=== PATIENT | female | born 1955 | race Caucasian/White ===

== ENCOUNTER 2018-03-18 11:27 | Outpatient (CLI) | payer MEDICARE, MEDICAID ==
--- NOTE | 2018-03-18 12:47 | RAD ---
TWO VIEWS OF THE CHEST: Comparison: 02-28-09 History: Cough for two weeks. FINDINGS: Two views of the chest shows a cardiomediastinal silhouette which is upper limits of normal in size. There is no evidence of consolidation, mass, or pleural effusions. Degenerative changes are seen in t he spine. The patient is status post left shoulder arthroplasty. IMPRESSION: No evidence of acute cardiopulmonary disease. POS: [facility]
== END 2018-03-18 11:28 | disposition home or self-care (01) ==
LOC: SCSRAD 11:27
PROVIDERS: ATTEND Family Medicine
DX: J20.9 Acute bronchitis, unspecified (principal)
CPT/HCPCS: 71046

== ENCOUNTER 2018-09-02 08:43 | Outpatient (CLI) | payer MEDICARE, MEDICAID ==
[2018-09-02 10:38] LABS: Hemoglobin 11.9 g/dL (12.0-16.0); Mean Corpuscular HGB CONC 33.7 g/dL (32.0-36.0); Mean Corpuscular Hemoglobin 29.7 pg (27.0-31.0); Mean Platelet Volume 7.2 fL (7.4-10.4); Platelet Count 334 thou/uL (130-400); Red Blood Cell (RBC) Count 4.01 mill/uL (4.20-5.40); White Blood Cell (WBC) Count 11.1 thou/uL (4.8-10.8)
[2018-09-02 10:47] LABS: PTT 29.6 SEC (22.9-36.1); Prothrombin Time 13.5 SEC (12.0-14.7)
[2018-09-02 10:57] LABS: Anion Gap 14 mmol/L (10-20); BUN (Urea Nitrogen) 10 mg/dL (9.8-20.1); Calc. Creatinine Clearance 0 mL/min (70-130); Calcium 9.3 mg/dL (7.8-10.44); Carbon Dioxide 25 mmol/L (23-31); Chloride 104 mmol/L (98-107); Estimated GFR-MDRD 62; Glucose 96 mg/dL (80-115); Potassium 4.6 mmol/L (3.5-5.1); Sodium 138 mmol/L (136-145)
== END 2018-09-02 08:44 | disposition home or self-care (01) ==
LOC: LABBT 08:43
PROVIDERS: ATTEND Surgery
DX: Z01.818 Encounter for other preprocedural examination (principal); M54.16 Radiculopathy, lumbar region; M48.061 Spinal stenosis, lumbar region without neurogenic claudication; M71.30 Other bursal cyst, unspecified site
CPT/HCPCS: 80048; 85027; 85610; 85730; 93005; 93010

== ENCOUNTER 2018-09-04 12:00 | Inpatient (IN) | payer MEDICARE, MEDICAID ==
[2018-09-02 09:11] VITALS: BMI 33.3
[2018-09-09] MEDS ORDERED: CEFAZOLIN 2 GM/50 ML BAG ONE (09:02)
[2018-09-09] MEDS ORDERED: Sodium Chloride 0.9% 10 ML ONE (09:30)
[2018-09-09] MEDS ORDERED: Bacitracin Zinc Ointment 30 gm TUBE ONE (09:30)
[2018-09-09] MEDS ORDERED: Thrombin 5000 UNITS/5 ML VIAL ONE (09:30)
[2018-09-09] MEDS ORDERED: Fentanyl 100 MCG/2 ML VIAL ONE ×2 (09:56→12:00)
[2018-09-09] MEDS ORDERED: Morphine Sulfate 2 MG/ML SYRINGE SLOW IVP PRN (11:06)
[2018-09-09] MEDS ORDERED: Promethazine HCl 25 MG/ML VIAL IM PRN (11:06)
[2018-09-09] MEDS ORDERED: HYDROmorphone 2 MG/ML VIAL SLOW IVP PRN (11:06)
[2018-09-09] MEDS ORDERED: Promethazine HCl 25 MG/ML VIAL SLOW IVP PRN (11:06)
[2018-09-09] MEDS ORDERED: PACU-Morphine 4MG/ML VIAL SLOW IVP PRN (11:06)
[2018-09-09] MEDS ORDERED: Meperidine HCl/PF 25 MG/ML VIAL SLOW IVP PRN (11:06)
[2018-09-09] MEDS ORDERED: Ondansetron HCl/PF 4 MG/2 ML Vial IVP PRN (11:06)
[2018-09-09] MEDS ORDERED: Milk Of Magnesia 30 ML UDCUP PO PRN (11:46)
[2018-09-09] MEDS ORDERED: Acetaminophen 325 MG TAB PO PRN (11:46)
[2018-09-09] MEDS ORDERED: Bisacodyl 10 MG SUPP PR PRN (11:46)
[2018-09-09] MEDS ORDERED: Fleet Enema 133 ML BOT PR PRN (11:46)
[2018-09-09] MEDS ORDERED: Mag-Al 1200 mg/1200 mg/30 ML UDCUP PO PRN (11:46)
[2018-09-09] MEDS ORDERED: traMADol HCl 50 MG TAB PO PRN (11:46)
[2018-09-09] MEDS ORDERED: PROVENTIL INHALER 6.7 G (200 INHALATIONS) INH SCH (12:00)
[2018-09-09] MEDS ORDERED: HYDROmorphone 2 MG/ML VIAL ONE (12:00)
--- NOTE | 2018-09-09 13:37 | OP ---
DATE OF PROCEDURE: 09/09/2018 OR: OR #11 WOUND TYPE: Type 1 wound. SURGEON: Zach Hawkins M.D. SLITTER CREASER SLOTTER HELPER: Rafael Kirby PA-C PREPROCEDURE DIAGNOSES: Low back with bilateral leg pain and L3-L4 synovial cyst. POSTPROCEDURE DIAGNOSES: Low back with bilateral leg pain and L3-L4 synovial cyst. PROCEDURE: L3-L4 laminectomy for synovial cyst resection. DESCRIPTION OF PROCEDURE: After informed consent was obtained from the patient, the patient was brou ght to OR 11. Proper patient pause and identification was carried out. She was placed under excelle nt endotracheal anesthesia and positioned prone on the OR table. All appropriate points were padded. We identified the midline dorsal spine and a prior lower lumbar wound and a portion of this was inc orporated into the new wound. This area sterilely cleansed, prepared, and draped. Proper patient pa use identification was carried out. The wound was then opened with a combination of sharp, monopolar and blunt dissection. The L3 spinous process and lamina was exposed and the L4 region which had pr ior surgery was exposed. Localization film confirmed our area of interest. We then performed an L3- L4 laminectomy, partial facetectomy, and synovial cyst resection. It was eccentric to the left, but did feel the canal to the midline. This was resected in its entirety. There was excellent decompres branden of the common dural tube, bilateral L3 and bilateral L4 nerve root well. The wound was copiousl y irrigated. Hemostasis was maximized throughout. The wound was then closed in anatomic layers foll owing the sprinkling of vancomycin powder. The patient then emerged from anesthesia.
[2018-09-09] MEDS ORDERED: Morphine 4 MG/ML VIAL ONE (14:12)
[2018-09-09] MEDS: Sodium Chloride 0.9% 1,000 ML IV SCH (14:55)
[2018-09-09] MEDS: HYDROcodone/Acetaminophen 7.5/325 mg Tablet PO PRN ×2 (16:28→20:45)
[2018-09-09] MEDS: Pregabalin 75 MG CAP PO SCH ×2 (16:29→20:46)
[2018-09-09] MEDS: CEFAZOLIN 2 GM/50 ML BAG IVPB SCH (16:30)
[2018-09-09] MEDS ORDERED: Lidocaine 1% PF 5 ML VIAL ONE (17:29)
[2018-09-09] MEDS ORDERED: PHENYLEPHRINE-NS 100 MCG/ML 10 ML SYRINGE ONE (17:29)
[2018-09-09] MEDS ORDERED: ePHEDrine/0.9% NaCl/PF SYRINGE 50 mg/10 ml ONE (17:29)
[2018-09-09] MEDS ORDERED: Dexamethasone 20 MG/5 ML VIAL ONE (17:29)
[2018-09-09] MEDS ORDERED: Metoclopramide HCl 10 MG/2 ML VIAL ONE (17:29)
[2018-09-09] MEDS ORDERED: Ondansetron PF 4 MG/2 ML Vial ONE (17:29)
[2018-09-09] MEDS ORDERED: PROPOFOL 200 MG/20 ML VIAL ONE (17:29)
[2018-09-09] MEDS ORDERED: Glycopyrrolate 0.2 MG/ML 5 ML SYRINGE ONE (17:29)
[2018-09-09] MEDS: busPIRone HCl 10 MG TAB PO SCH (20:45)
[2018-09-09] MEDS: Ziprasidone 20 MG CAP PO SCH (20:46)
[2018-09-09] MEDS: Carvedilol 6.25 MG TAB PO SCH (20:46)
[2018-09-09] MEDS ORDERED: Amitriptyline HCl 100 MG TAB PO SCH (21:00)
[2018-09-09] MEDS: Bromocriptine 2.5 MG TAB PO SCH (21:16)
[2018-09-09] MEDS: Acetaminophen/Codeine 30-300mg Tablet PO PRN (22:09)
[2018-09-10] MEDS: CEFAZOLIN 2 GM/50 ML BAG IVPB SCH (00:03)
[2018-09-10] MEDS: Sodium Chloride 0.9% 1,000 ML IV SCH ×2 (01:48→07:22)
[2018-09-10] MEDS: Acetaminophen/Codeine 30-300mg Tablet PO PRN (04:22)
[2018-09-10] MEDS: Morphine 2 MG/ML SYRINGE SLOW IVP PRN ×4 (05:14→15:26)
[2018-09-10] MEDS: HYDROcodone/Acetaminophen 7.5/325 mg Tablet PO PRN ×3 (05:14→12:49)
[2018-09-10] MEDS ORDERED: Levothyroxine Sodium 112 MCG TAB PO SCH (06:00)
[2018-09-10 08:06] VITALS: TEMP 98.5
[2018-09-10] MEDS: busPIRone HCl 10 MG TAB PO SCH (08:10)
[2018-09-10] MEDS: Pregabalin 75 MG CAP PO SCH ×2 (08:10→15:20)
[2018-09-10] MEDS: Ziprasidone 20 MG CAP PO SCH (08:11)
[2018-09-10] MEDS: Carvedilol 6.25 MG TAB PO SCH (08:12)
[2018-09-10] MEDS ORDERED: Escitalopram Oxalate 20 mg Tablet PO SCH (09:00)
[2018-09-10] MEDS ORDERED: Losartan 25 MG TAB PO SCH (09:00)
[2018-09-10] MEDS ORDERED: Famotidine 20 MG TAB PO SCH (09:00)
--- NOTE | 2018-09-10 09:31 | PRG ---
DATE OF SERVICE: 09/10/2018 Ms. Shaffer is postop day 1 from lumbar synovial cyst resection. She has low back and left hip and lat eral thigh pain. She otherwise has met criteria for dismissal. Neurologically, she is doing well. We went over intra and postoperative issues.
[2018-09-10] MEDS: Bromocriptine 2.5 MG TAB PO SCH (09:46)
[2018-09-10 11:04] VITALS: BP 122/74
== END 2018-09-10 15:41 | disposition home or self-care (01) | DRG 517 ==
LOC: SURG A 09-09 07:33 → SURG B 09-09 13:41
PROVIDERS: ADMIT Surgery; ATTEND Surgery
PROC: 01NB0ZZ Release Lumbar Nerve, Open Approach (ICD-10-PCS; principal; 2018-09-09)
DX: M48.061 Spinal stenosis, lumbar region without neurogenic claudication (principal); M54.16 Radiculopathy, lumbar region; M71.38 Other bursal cyst, other site
CPT/HCPCS: 76001; J0131; J1100; J1170; J2001; J2270; J2405; J2704; J2765; J3010; J3370; J3490

== ENCOUNTER 2021-09-07 19:14 | Emergency (ER) | payer MEDICARE, MEDICAID | END 2021-09-07 20:50 | disposition home or self-care (01) | LOC: ERS 19:14 | DX: R19.7 Diarrhea, unspecified (principal) | CPT/HCPCS: 99281 ==

== ENCOUNTER 2021-10-22 19:06 | Inpatient (IN) | payer MEDICARE, MEDICAID ==
[~2021-10-22 19:06] MED LIST: Iopamidol-370 76% 500 ML 1 ML ONE
[2021-10-22 19:49] LABS: #Basophils 0.1 thou/uL (0.0-0.2); #Eosinphils 0.1 thou/uL (0.0-0.7); #Lymphocytes 3.6 thou/uL (1.20-3.40); #Monocytes 1.2 thou/uL (0.11-0.59); #Neutrophils 9.9 thou/uL (1.40-6.50); %Basophils 0.6 % (0.0-1.0); %Eosinophils 0.4 % (0.0-10.0); %Lymphocytes 24.5 % (21.0-51.0); %Monocytes 7.9 % (0.0-10.0); %Neutrophils 66.6 % (42.0-75.0); Hemoglobin 11.8 g/dL (12.0-16.0); Mean Corpuscular HGB CONC 34.7 g/dL (32.0-36.0); Mean Corpuscular Hemoglobin 30.1 pg (27.0-31.0); Mean Corpuscular Volume 86.9 fL (78.0-98.0); Mean Platelet Volume 7.3 fL (7.4-10.4); Platelet Count 364 thou/uL (130-400); Red Blood Cell (RBC) Count 3.92 mill/uL (4.20-5.40); White Blood Cell (WBC) Count 14.9 thou/uL (4.8-10.8)
[2021-10-22 19:58] LABS: INR-International Normal Ratio 1.1; PTT 37.2 sec (22.9-36.1); Prothrombin Time 14.1 sec (12.0-14.7)
[2021-10-22 20:15] LABS: ALT (SGPT) 32 U/L (8-55); AST (SGOT) 42 U/L (5-34); Albumin 4.1 g/dL (3.4-4.8); Alkaline Phosphatase 91 U/L (40-110); Anion Gap 17 mmol/L (10-20); BUN (Urea Nitrogen) 11 mg/dL (9.8-20.1); Bilirubin, Total 0.7 mg/dL (0.2-1.2); Calc. Creatinine Clearance 0 mL/min (70-130); Calcium 9.9 mg/dL (7.8-10.44); Carbon Dioxide 20 mmol/L (23-31); Chloride 107 mmol/L (98-107); Globulin 3.8 g/dL (2.4-3.5); Glucose 122 mg/dL (80-115); Lipase 76 U/L (8-78); Magnesium 1.3 mg/dL (1.6-2.6); Potassium 4.3 mmol/L (3.5-5.1); Protein, Total 7.9 g/dL (5.8-8.1); Sodium 140 mmol/L (136-145)
[2021-10-22] MEDS ORDERED: Nitroglycerin 2% Ointment 1 INCH/1 GM Packet ONE (21:14)
[2021-10-22] MEDS ORDERED: Magnesium 2 GM/50 ML BAG (IN WATER) ONE (21:22)
[2021-10-22] MEDS ORDERED: Nitroglycerin 0.4 MG TAB (25 Tab Bottle) SL PRN (22:32)
[2021-10-22] MEDS ORDERED: Ondansetron PF 4 MG/2 ML Vial IVP PRN (22:32)
[2021-10-22] MEDS ORDERED: HYDROcodone/Acetaminophen 5/325 mg Tablet PO PRN (22:32)
[2021-10-22] MEDS ORDERED: Acetaminophen 325 MG TAB PO PRN (22:32)
[2021-10-22] MEDS ORDERED: Carvedilol 6.25 MG TAB PO SCH (23:00)
[2021-10-22] MEDS ORDERED: Furosemide 40 MG/4 ML VIAL SLOW IVP SCH (23:00)
[2021-10-22 23:25] LABS: Troponin I Less than 0.010 ng/mL (< 0.028)
[2021-10-23] MEDS: cefTRIAXone\\ROCEPHIN 1 GM in Sodium Chloride 0.9% 100 ML IVPB SCH ×2 (01:24→23:35)
[2021-10-23 01:25] VITALS: BMI 30.2
[2021-10-23 02:05] LABS: Troponin I Less than 0.010 ng/mL (< 0.028)
[2021-10-23] MEDS: Magnesium 2 GM/50 ML 2 GM in Premix Bag 1 BAG IVPB SCH ×2 (02:23→11:45)
[2021-10-23 05:39] LABS: Hemoglobin 10.8 g/dL (12.0-16.0); Mean Corpuscular HGB CONC 34.7 g/dL (32.0-36.0); Mean Corpuscular Hemoglobin 30.2 pg (27.0-31.0); Mean Platelet Volume 7.3 fL (7.4-10.4); Platelet Count 338 thou/uL (130-400); RBC Distribution Width 11.9 % (11.5-14.5); Red Blood Cell (RBC) Count 3.58 mill/uL (4.20-5.40); White Blood Cell (WBC) Count 12.5 thou/uL (4.8-10.8)
[2021-10-23 05:40] LABS: Lymphocytes 38 % (21-51); MDiff Complete? YES; Monocytes 8 % (0-10); Neutrophil 54 % (42-75); Platelet Morphology Comment Appears Adequate; RBC Morphology Normal
[2021-10-23] MEDS: Levothyroxine Sodium 100 MCG TAB PO SCH (05:51)
[2021-10-23 05:55] LABS: ALT (SGPT) 30 U/L (8-55); AST (SGOT) 39 U/L (5-34); Albumin 3.8 g/dL (3.4-4.8); Alkaline Phosphatase 84 U/L (40-110); Anion Gap 15 mmol/L (10-20); BUN (Urea Nitrogen) 11 mg/dL (9.8-20.1); Bilirubin, Total 0.4 mg/dL (0.2-1.2); Calc. Creatinine Clearance 86 mL/min (70-130); Calcium 9.4 mg/dL (7.8-10.44); Carbon Dioxide 23 mmol/L (23-31); Chloride 102 mmol/L (98-107); Globulin 3.6 g/dL (2.4-3.5); Glucose 112 mg/dL (80-115); Protein, Total 7.4 g/dL (5.8-8.1); Sodium 137 mmol/L (136-145)
[2021-10-23] MEDS: Ziprasidone 60 MG CAP PO SCH (08:32)
[2021-10-23] MEDS: Carvedilol 6.25 MG TAB PO SCH ×2 (08:32→16:01)
[2021-10-23] MEDS: Potassium Chloride 20 MEQ TAB PO SCH ×4 (08:32→20:45)
[2021-10-23] MEDS: Bromocriptine 2.5 MG TAB PO SCH ×2 (08:33→20:46)
[2021-10-23] MEDS: Aspirin Chewable 81 MG TAB PO SCH (08:33)
[2021-10-23] MEDS: LACTINEX 1 TAB PO SCH (08:33)
[2021-10-23] MEDS: busPIRone HCl 5 MG TAB PO SCH ×2 (08:34→20:46)
[2021-10-23] MEDS: Famotidine 20 MG TAB PO SCH ×2 (08:34→20:46)
[2021-10-23] MEDS: Escitalopram Oxalate 20 mg Tablet PO SCH (08:34)
[2021-10-23] MEDS: Enoxaparin Sodium 40 MG/0.4 ML SYRINGE SC SCH (08:34)
[2021-10-23] MEDS: Furosemide 40 MG/4 ML VIAL SLOW IVP SCH (08:35)
[2021-10-23] MEDS: Losartan 25 MG TAB PO SCH (08:35)
[2021-10-23] MEDS: Pregabalin 75 MG CAP PO SCH ×3 (08:35→20:45)
[2021-10-23] MEDS: metroNIDAZOLE 500 MG TAB PO SCH ×3 (08:35→20:46)
[2021-10-23] MEDS ORDERED: BROMOCRIPTINE MESYLATE 5 MG PO SCH (09:00)
[2021-10-23] MEDS ORDERED: Non-Formulary Item 1 EACH (Buspirone Hcl [Buspirone Hcl] 15 MG Tablet) PO SCH (09:00)
[2021-10-23] MEDS ORDERED: Amitriptyline HCl 10 MG TAB PO SCH (21:00)
[2021-10-24] MEDS: Potassium Chloride 20 MEQ TAB PO SCH ×4 (01:33→12:04)
[2021-10-24 04:56] LABS: Magnesium 2.2 mg/dL (1.6-2.6)
[2021-10-24] MEDS: Levothyroxine Sodium 100 MCG TAB PO SCH (05:41)
[2021-10-24 08:11] LABS: Anion Gap 12 mmol/L (10-20); BUN (Urea Nitrogen) 10 mg/dL (9.8-20.1); Calc. Creatinine Clearance 96 mL/min (70-130); Calcium 9.5 mg/dL (7.8-10.44); Carbon Dioxide 24 mmol/L (23-31); Chloride 106 mmol/L (98-107); Glucose 91 mg/dL (80-115); Potassium 4.4 mmol/L (3.5-5.1); Sodium 138 mmol/L (136-145)
[2021-10-24] MEDS: Ziprasidone 60 MG CAP PO SCH (09:34)
[2021-10-24] MEDS: Furosemide 40 MG/4 ML VIAL SLOW IVP SCH (09:34)
[2021-10-24] MEDS: busPIRone HCl 5 MG TAB PO SCH (09:34)
[2021-10-24] MEDS: Carvedilol 6.25 MG TAB PO SCH (09:34)
[2021-10-24] MEDS: Aspirin Chewable 81 MG TAB PO SCH (09:34)
[2021-10-24] MEDS: LACTINEX 1 TAB PO SCH (09:34)
[2021-10-24] MEDS: Bromocriptine 2.5 MG TAB PO SCH (09:34)
[2021-10-24] MEDS: Famotidine 20 MG TAB PO SCH (09:34)
[2021-10-24] MEDS: Escitalopram Oxalate 20 mg Tablet PO SCH (09:34)
[2021-10-24] MEDS: Enoxaparin Sodium 40 MG/0.4 ML SYRINGE SC SCH (09:34)
[2021-10-24] MEDS: Losartan 25 MG TAB PO SCH (09:35)
[2021-10-24] MEDS: metroNIDAZOLE 500 MG TAB PO SCH (09:35)
[2021-10-24] MEDS: Pregabalin 75 MG CAP PO SCH (09:35)
[2021-10-24 12:16] VITALS: BP 113/55; TEMP 98
== END 2021-10-24 14:07 | disposition home or self-care (01) | DRG 193 ==
LOC: ERS 19:06 → 2NO 22:38
PROVIDERS: ADMIT Internal Medicine; ATTEND Internal Medicine
DX: J18.9 Pneumonia, unspecified organism (principal); I50.33 Acute on chronic diastolic (congestive) heart failure; I11.0 Hypertensive heart disease with heart failure; E66.9 Obesity, unspecified; D64.9 Anemia, unspecified; G89.4 Chronic pain syndrome; Z96.612 Presence of left artificial shoulder joint; E03.9 Hypothyroidism, unspecified; I70.1 Atherosclerosis of renal artery; E83.42 Hypomagnesemia; Z96.611 Presence of right artificial shoulder joint; E87.6 Hypokalemia; Z79.899 Other long term (current) drug therapy; Z90.49 Acquired absence of other specified parts of digestive tract; Z90.710 Acquired absence of both cervix and uterus; Z87.898 Personal history of other specified conditions; Z68.29 Body mass index [BMI] 29.0-29.9, adult
CPT/HCPCS: 36415; 71045; 71275; 74174; 78451; 80048; 80053; 83690; 83735; 83880; 84443; 84484; 85007; 85025; 85027; 85379; 85610; 85730; 93005; 96365; A9540; J0696; J1650; J1940; J3475; J3490; Q9967

== ENCOUNTER 2021-11-14 15:38 | Outpatient (CLI) | payer MEDICARE, MEDICAID | END 2021-11-14 15:39 | disposition home or self-care (01) | LOC: BICRAD 15:38 | PROVIDERS: ATTEND Family Medicine | DX: Z09 Encounter for follow-up examination after completed treatment for conditions other than malignant neoplasm (principal); Z87.01 Personal history of pneumonia (recurrent) | CPT/HCPCS: 71046 ==

== ENCOUNTER 2023-10-26 02:50 | Inpatient (IN) | payer OTHER ==
[2023-10-26] MEDS ORDERED: Aspirin Chewable 81 MG TAB ONE (03:16)
[2023-10-26 03:33] LABS: Hematocrit 35.5 % (36.0-47.0); Hemoglobin 12.3 g/dL (12.0-16.0); Manual Diff?? YES; Mean Corpuscular HGB CONC 34.6 g/dL (32.0-36.0); Mean Corpuscular Hemoglobin 29.1 pg (27.0-31.0); Mean Corpuscular Volume 83.9 fl (78.0-98.0); Mean Platelet Volume 10.1 fL (7.4-10.4); Platelet Count 249 10x3/uL (130-400); RBC Distribution Width 12.4 % (11.5-14.5); Red Blood Cell (RBC) Count 4.23 mill/uL (4.20-5.40); White Blood Cell (WBC) Count 12.5 10x3/uL (4.8-10.8)
[2023-10-26 03:41] LABS: Delete Auto Diff?? YES
[2023-10-26 04:02] LABS: Troponin I Less than 0.010 ng/mL (< 0.028)
[2023-10-26 04:03] LABS: ALT (SGPT) 12 U/L (8-55); AST (SGOT) 20 U/L (5-34); Albumin 4.1 g/dL (3.4-4.8); Alkaline Phosphatase 112 U/L (40-110); Anion Gap 12 mmol/L (10-20); BUN (Urea Nitrogen) 16 mg/dL (9.8-20.1); Bilirubin, Total 0.9 mg/dL (0.2-1.2); Calc. Creatinine Clearance 0 mL/min (70-130); Calcium 9.3 mg/dL (7.8-10.44); Carbon Dioxide 24 mmol/L (23-31); Chloride 106 mmol/L (98-107); Estimated GFR 62; Globulin 3.5 g/dL (2.4-3.5); Glucose 85 mg/dL (80-115); Lipase 14 U/L (8-78); Potassium 3.7 mmol/L (3.5-5.1); Protein, Total 7.6 g/dL (5.8-8.1); Sodium 138 mmol/L (136-145)
[2023-10-26] MEDS ORDERED: Ipratropium/Albuterol 3 ML NEB ONE (04:05)
[2023-10-26 04:09] LABS: Band 11 % (5-11); CellaVision Operator ID lab.abc; Eosinophils 1 % (0-10); Lymphocytes 12 % (21-51); Metamyelocyte 1 % (0-0); Monocytes 2 % (0-10); Neutrophil 72 % (42-75); Platelet Adequacy Comment Platelets Normal; RBC Morphology Within Normal Limits; Reactive Lymphocytes 1 % (0-10); Smudge Cells 11.9 %; Total Cell Count 101
[2023-10-26] MEDS ORDERED: Azithromycin 500 MG VIAL ONE (05:56)
[2023-10-26] MEDS ORDERED: cefTRIAXone (ROCEPHIN) 2 GM VIAL ONE (05:57)
[2023-10-26] MEDS ORDERED: Sodium Chloride 0.9% 100 ML ONE (05:57)
[2023-10-26 06:52] LABS: SARS-CoV-2 NAA Rapid Test Not Detected (NotDetected)
[2023-10-26] MEDS ORDERED: Bisacodyl 10 MG SUPP PR PRN (09:13)
[2023-10-26] MEDS ORDERED: Acetaminophen 325 MG TAB PO PRN (09:13)
[2023-10-26] MEDS ORDERED: Senokot S 8.6-50 MG TAB PO PRN (09:13)
[2023-10-26] MEDS ORDERED: Bisacodyl 5 MG TAB PO PRN (09:13)
[2023-10-26] MEDS ORDERED: Polyethylene Glycol 3350 17 GM Packet PO PRN (09:45)
[2023-10-26 09:51] VITALS: BMI 30.4
[2023-10-26 11:08] LABS: Free T4 (Free Thyroxine) 1.02 ng/dL (0.70-1.48)
[2023-10-26] MEDS ORDERED: Iopamidol 370 76% 100 ML VIAL ONE (11:51)
[2023-10-26 12:21] LABS: Bacteria/HPF None Seen HPF (None Seen); Bilirubin Negative (Negative); Blood, Urine Negative (Negative); CAUTI Indications for Culture Dysuria,urgency,freq; Clarity Clear (Clear); Glucose, Urine (Dipstick) Normal (Negative); Ketone, Urine Negative (Negative); Leukocyte Negative Leu/uL (Negative); Nitrite Negative (Negative); Protein, Urine (Dipstick) Negative (Neg-Trace); RBC/HPF 0-3 HPF (0-3); Specific Gravity, Urine 1.027 (1.002-1.036); Squamous Epithelial 0-3 HPF (0-3); Urobilinogen Normal mg/dL (Less than 2); WBC/HPF 0-3 HPF (0-3); pH, Urine 5.5 (5.0-9.0)
[2023-10-26 12:25] LABS: Urine Culture Reflex No No
[2023-10-26] MEDS ORDERED: Famotidine 20 MG TAB PO SCH (21:00)
[2023-10-27 04:21] LABS: #Eosinphils 0.1 thou/uL (0.0-0.7); #Monocytes 0.9 thou/uL (0.11-0.59); #Neutrophils 12.7 thou/uL (1.40-6.50); %Basophils 0.2 % (0.0-1.0); %Eosinophils 0.5 % (0.0-10.0); %Lymphocytes 18.6 % (21.0-51.0); %Monocytes 5.3 % (0.0-10.0); %Neutrophils 75.1 % (42.0-75.0); Hematocrit 29.5 % (36.0-47.0); Hemoglobin 10.1 g/dL (12.0-16.0); Mean Corpuscular HGB CONC 34.2 g/dL (32.0-36.0); Mean Corpuscular Volume 84.8 fl (78.0-98.0); Mean Platelet Volume 10.2 fL (7.4-10.4); Platelet Count 227 10x3/uL (130-400); RBC Distribution Width 12.8 % (11.5-14.5); Red Blood Cell (RBC) Count 3.48 mill/uL (4.20-5.40); White Blood Cell (WBC) Count 16.9 10x3/uL (4.8-10.8)
[2023-10-27 04:51] LABS: Anion Gap 13 mmol/L (10-20); BUN (Urea Nitrogen) 13 mg/dL (9.8-20.1); Calc. Creatinine Clearance 89 mL/min (70-130); Calcium 8.5 mg/dL (7.8-10.44); Carbon Dioxide 21 mmol/L (23-31); Chloride 105 mmol/L (98-107); Estimated GFR 82; Glucose 84 mg/dL (80-115); Potassium 3.3 mmol/L (3.5-5.1); Sodium 136 mmol/L (136-145)
[2023-10-27] MEDS ORDERED: Levothyroxine Sodium 100 MCG TAB PO SCH (06:00)
[2023-10-27] MEDS ORDERED: cefTRIAXone\\ROCEPHIN 1 GM in Sodium Chloride 0.9% 100 ML IVPB SCH (08:00)
[2023-10-27] MEDS: Azithromycin 250 MG TAB PO SCH ×2 (08:30→10:47)
[2023-10-27] MEDS ORDERED: Polyethylene Glycol 3350 17 GM Packet PO SCH (09:00)
[2023-10-27 15:43] VITALS: TEMP 98.8
[2023-10-27 16:04] VITALS: BP 163/77
== END 2023-10-27 17:10 | disposition home or self-care (01) | DRG 194 ==
LOC: ERS 02:50 → 2SE 09:26
PROVIDERS: ADMIT Hospitalist; ATTEND Internal Medicine
DX: J18.9 Pneumonia, unspecified organism (principal); I50.32 Chronic diastolic (congestive) heart failure; I11.0 Hypertensive heart disease with heart failure; G47.33 Obstructive sleep apnea (adult) (pediatric); F31.9 Bipolar disorder, unspecified; K58.1 Irritable bowel syndrome with constipation; I95.9 Hypotension, unspecified; E03.9 Hypothyroidism, unspecified; Z79.899 Other long term (current) drug therapy; Z79.890 Hormone replacement therapy; Z98.890 Other specified postprocedural states; Z90.49 Acquired absence of other specified parts of digestive tract; Z90.710 Acquired absence of both cervix and uterus; Z11.52 Encounter for screening for COVID-19
CPT/HCPCS: 36415; 71045; 71275; 74230; 80048; 80053; 81001; 83605; 83690; 83880; 84439; 84443; 84484; 85025; 85379; 87040; 93005; 94640; 96361; 96365; 96367; J0456; J0696; J1650; J3490; J7620; Q9967

== ENCOUNTER 2023-11-09 20:40 | Observation (INO) | payer OTHER ==
[~2023-11-09 20:40] MED LIST changes: -Iopamidol-370 76% 500 ML 1 ML ONE; +Iopamidol-370 76% 500 ML MDV (1 ML CHARGE) ONE
[2023-11-09 21:10] LABS: #Basophils 0.1 thou/uL (0.0-0.2); #Eosinphils 0.2 thou/uL (0.0-0.7); #Monocytes 0.6 thou/uL (0.11-0.59); #Neutrophils 3.8 thou/uL (1.40-6.50); %Basophils 0.8 % (0.0-1.0); %Lymphocytes 53.6 % (21.0-51.0); %Monocytes 5.6 % (0.0-10.0); %Neutrophils 37.8 % (42.0-75.0); Hematocrit 36.5 % (36.0-47.0); Hemoglobin 12.3 g/dL (12.0-16.0); Mean Corpuscular HGB CONC 33.7 g/dL (32.0-36.0); Mean Corpuscular Hemoglobin 28.5 pg (27.0-31.0); Mean Corpuscular Volume 84.5 fl (78.0-98.0); Mean Platelet Volume 9.9 fL (7.4-10.4); Platelet Count 350 10x3/uL (130-400); Red Blood Cell (RBC) Count 4.32 mill/uL (4.20-5.40); White Blood Cell (WBC) Count 10.1 10x3/uL (4.8-10.8)
[2023-11-09 21:37] LABS: ALT (SGPT) 14 U/L (8-55); AST (SGOT) 16 U/L (5-34); Albumin 4.2 g/dL (3.4-4.8); Alkaline Phosphatase 117 U/L (40-110); Anion Gap 12 mmol/L (10-20); BUN (Urea Nitrogen) 18 mg/dL (9.8-20.1); Bilirubin, Total 0.3 mg/dL (0.2-1.2); Calc. Creatinine Clearance 0 mL/min (70-130); Calcium 9.4 mg/dL (7.8-10.44); Carbon Dioxide 23 mmol/L (23-31); Chloride 106 mmol/L (98-107); Estimated GFR 67; Globulin 3.5 g/dL (2.4-3.5); Glucose 119 mg/dL (80-115); Lipase 16 U/L (8-78); Magnesium 1.7 mg/dL (1.6-2.6); Potassium 3.3 mmol/L (3.5-5.1); Protein, Total 7.7 g/dL (5.8-8.1); Sodium 138 mmol/L (136-145)
[2023-11-09 21:39] LABS: Troponin I Less than 0.010 ng/mL (< 0.028)
[2023-11-09] MEDS ORDERED: Aspirin Chewable 81 MG TAB ONE (22:33)
[2023-11-09] MEDS ORDERED: Acetaminophen 325 MG TAB PO PRN (23:36)
[2023-11-09] MEDS ORDERED: Senokot S 8.6-50 MG TAB PO PRN (23:36)
[2023-11-09] MEDS: NS 0.9% w/ 40 MEQ KCL 1,000 ML IV SCH (23:45)
[2023-11-10 01:28] LABS: Troponin I Less than 0.010 ng/mL (< 0.028)
[2023-11-10 03:54] LABS: #Basophils 0.1 thou/uL (0.0-0.2); #Eosinphils 0.2 thou/uL (0.0-0.7); #Monocytes 0.6 thou/uL (0.11-0.59); #Neutrophils 5.4 thou/uL (1.40-6.50); %Basophils 0.6 % (0.0-1.0); %Eosinophils 1.5 % (0.0-10.0); %Lymphocytes 41.3 % (21.0-51.0); %Monocytes 5.8 % (0.0-10.0); %Neutrophils 50.4 % (42.0-75.0); Hematocrit 31.6 % (36.0-47.0); Hemoglobin 10.5 g/dL (12.0-16.0); Mean Corpuscular HGB CONC 33.2 g/dL (32.0-36.0); Mean Corpuscular Hemoglobin 28.6 pg (27.0-31.0); Mean Corpuscular Volume 86.1 fl (78.0-98.0); Mean Platelet Volume 10.2 fL (7.4-10.4); Platelet Count 307 10x3/uL (130-400); RBC Distribution Width 13.2 % (11.5-14.5); Red Blood Cell (RBC) Count 3.67 mill/uL (4.20-5.40); White Blood Cell (WBC) Count 10.6 10x3/uL (4.8-10.8)
[2023-11-10 04:17] LABS: Anion Gap 12 mmol/L (10-20); BUN (Urea Nitrogen) 18 mg/dL (9.8-20.1); Calc. Creatinine Clearance 0 mL/min (70-130); Calcium 8.7 mg/dL (7.8-10.44); Carbon Dioxide 23 mmol/L (23-31); Chloride 109 mmol/L (98-107); Estimated GFR 75; Glucose 93 mg/dL (80-115); Potassium 4.1 mmol/L (3.5-5.1); Sodium 140 mmol/L (136-145)
[2023-11-10 04:21] LABS: Troponin I Less than 0.010 ng/mL (< 0.028)
[2023-11-10] MEDS: NS 0.9% w/ 40 MEQ KCL 1,000 ML IV SCH (04:35)
[2023-11-10 05:14] VITALS: BMI 29.9
[2023-11-10 06:19] LABS: SARS-CoV-2 NAA Rapid Test Not Detected (NotDetected)
[2023-11-10] MEDS ORDERED: Pantoprazole 40 MG VIAL ONE (08:07)
[2023-11-10] MEDS ORDERED: Sodium Chloride 0.9% 0 ML ONE (08:07)
[2023-11-10] MEDS ORDERED: Enoxaparin 40 MG (0.4 mL) SYRINGE ONE (08:08)
[2023-11-10] MEDS: Enoxaparin 40 MG (0.4 mL) SYRINGE SC SCH (08:15)
[2023-11-10] MEDS ORDERED: LORazepam 2 MG/ML SYR.(CARPUJECT) IVP SCH (13:15)
[2023-11-10] MEDS ORDERED: Lorazepam 0.5 MG TAB PO SCH (16:00)
[2023-11-10] MEDS: Carvedilol 6.25 MG TAB PO SCH (20:25)
[2023-11-10] MEDS: Losartan 25 MG TAB PO SCH (20:25)
[2023-11-10] MEDS ORDERED: Amitriptyline HCl 25 MG TAB PO SCH (21:00)
[2023-11-11] MEDS ORDERED: Levothyroxine Sodium 100 MCG TAB PO SCH (06:00)
[2023-11-11] MEDS ORDERED: Ziprasidone 60 MG CAP PO SCH (08:00)
[2023-11-11] MEDS ORDERED: cloNIDine 0.1 MG TAB PO SCH (09:00)
[2023-11-11] MEDS: Enoxaparin 40 MG (0.4 mL) SYRINGE SC SCH (09:18)
[2023-11-11] MEDS: Losartan 25 MG TAB PO SCH (09:19)
[2023-11-11] MEDS: Carvedilol 6.25 MG TAB PO SCH (09:20)
[2023-11-11 12:01] VITALS: BP 157/82; TEMP 98.2
== END 2023-11-11 14:03 | disposition home or self-care (01) ==
LOC: ERS 20:40 → ERHOLD 23:27 → 2SW 11-10 13:48
PROVIDERS: ADMIT Student in an Organized Health Care Education/Training Program; ATTEND Family Medicine
PROC: B246ZZZ Ultrasonography of Right and Left Heart (ICD-10-PCS; principal; 2023-11-11)
DX: R06.02 Shortness of breath (principal); I10 Essential (primary) hypertension; I50.33 Acute on chronic diastolic (congestive) heart failure; K58.9 Irritable bowel syndrome, unspecified; E03.9 Hypothyroidism, unspecified; M54.9 Dorsalgia, unspecified; G89.29 Other chronic pain; F31.9 Bipolar disorder, unspecified; Z87.898 Personal history of other specified conditions; Z79.899 Other long term (current) drug therapy; Z79.890 Hormone replacement therapy
CPT/HCPCS: 0240U; 71275; 80048; 83605; 83690; 83735; 83880; 84484 ×3; 85025; 93005; 93306; 94760; 96372 ×2; 99285; G0378 ×3; 36415; 80053; 84443; C9113; J1650; J3480; J3490; Q9967

== ENCOUNTER 2025-06-21 17:05 | Inpatient (IN) | payer OTHER ==
[2025-06-21] MEDS ORDERED: Acetaminophen 500 MG TAB ONE (18:00)
[2025-06-21 18:50] LABS: #Basophils 0.04 10x3/uL (0.0-0.2); #Eosinophils 0.06 10x3/uL (0.0-0.7); #Monocytes 1.17 10x3/uL (0.11-0.59); #Neutrophils 14.10 10x3/uL (1.40-6.50); %Basophils 0.2 % (0.0-1.0); %Eosinophils 0.3 % (0.0-10.0); %Lymphocytes 12.8 % (21.0-51.0); %Monocytes 6.6 % (0.0-10.0); %Neutrophils 79.6 % (42.0-75.0); Hematocrit 34.8 % (36.0-47.0); Hemoglobin 11.7 g/dL (12.0-16.0); Mean Corpuscular Hemoglobin 28.3 pg (27.0-31.0); Mean Corpuscular Volume 84.3 fL (78.0-98.0); Platelet Count 246 10x3/uL (130-400); Red Blood Cell (RBC) Count 4.13 mill/uL (4.20-5.40); White Blood Cell (WBC) Count 17.72 10x3/uL (4.8-10.8)
[2025-06-21 19:02] LABS: INR-International Normal Ratio 1.1; Prothrombin Time 13.8 sec (12.0-14.7)
[2025-06-21 19:04] LABS: PTT 29.0 sec (22.9-36.1)
[2025-06-21 19:11] LABS: ALT (SGPT) 16 U/L (Less than 34); AST (SGOT) 28 U/L (11-34); Albumin 4.0 g/dL (3.1-4.5); Alkaline Phosphatase 126 U/L (40-110); Anion Gap 14 mmol/L (10-20); BUN (Urea Nitrogen) 26 mg/dL (9.8-20.1); Bilirubin, Total 0.4 mg/dL (0.3-1.2); Calc. Creatinine Clearance 0 mL/min (70-130); Calcium 8.7 mg/dL (7.8-10.44); Carbon Dioxide 20 mmol/L (23-31); Chloride 107 mmol/L (98-107); Globulin 3.6 g/dL (2.4-3.5); Glucose 107 mg/dL (83-110); Potassium 4.2 mmol/L (3.5-5.1); Sodium 137 mmol/L (136-145); Troponin I 0.012 ng/mL (< 0.028)
[2025-06-21] MEDS ORDERED: Cefepime 2 GM VIAL ONE (20:25)
[2025-06-21] MEDS ORDERED: VANCOMYCIN 2 GRAM/400 ML BAG ONE (21:01)
[2025-06-21] MEDS ORDERED: Ketorolac Tromethamine 30 MG (1 mL) VIAL ONE (22:12)
[2025-06-21 22:31] LABS: CAUTI Indications for Culture Alt mental st,lethar; Glucose, Urine (Dipstick) Normal (Negative); Leukocyte 500 Leu/uL (Negative); Protein, Urine (Dipstick) Negative (Neg-Trace); RBC/HPF 0-3 HPF (0-3); Specific Gravity, Urine 1.017 (1.002-1.036)
[2025-06-21 22:33] LABS: Bacteria/HPF 1+ HPF (None Seen)
[2025-06-21 22:34] LABS: Urine Culture Reflex No No
[2025-06-21] MEDS ORDERED: Ondansetron PF 4 MG/2 ML Vial IVP PRN (23:33)
[2025-06-21] MEDS ORDERED: Pharmacy to Dose: VANC IVPB PRN (23:36)
[2025-06-22 01:59] VITALS: BMI 34.9
[2025-06-22 05:48] LABS: #Basophils 0.06 10x3/uL (0.0-0.2); #Eosinophils 0.21 10x3/uL (0.0-0.7); #Monocytes 1.69 10x3/uL (0.11-0.59); #Neutrophils 16.38 10x3/uL (1.40-6.50); %Basophils 0.2 % (0.0-1.0); %Eosinophils 0.8 % (0.0-10.0); %Lymphocytes 25.4 % (21.0-51.0); %Monocytes 6.8 % (0.0-10.0); %Neutrophils 66.0 % (42.0-75.0); Hematocrit 26.9 % (36.0-47.0); Hemoglobin 8.8 g/dL (12.0-16.0); Mean Corpuscular Hemoglobin 28.7 pg (27.0-31.0); Mean Corpuscular Volume 87.6 fL (78.0-98.0); Platelet Count 175 10x3/uL (130-400); Red Blood Cell (RBC) Count 3.07 mill/uL (4.20-5.40); White Blood Cell (WBC) Count 24.86 10x3/uL (4.8-10.8)
[2025-06-22 06:13] LABS: Anion Gap 8 mmol/L (10-20); BUN (Urea Nitrogen) 32 mg/dL (9.8-20.1); Calc. Creatinine Clearance 57 mL/min (70-130); Calcium 7.7 mg/dL (7.8-10.44); Carbon Dioxide 22 mmol/L (23-31); Chloride 106 mmol/L (98-107); Glucose 107 mg/dL (83-110); Potassium 4.0 mmol/L (3.5-5.1); Sodium 132 mmol/L (136-145)
[2025-06-22 06:14] LABS: CRP, High Sensitivity at Bryan 7.36 mg/dL (< or = 0.5)
[2025-06-22] MEDS: Heparin 5,000 UNITS/ML VIAL SC SCH (08:28)
[2025-06-22] MEDS: Acetaminophen 325 MG TAB PO PRN (10:47)
[2025-06-22] MEDS: Vancomycin 1 GM in Premix 1 BAG IVPB SCH (14:43)
[2025-06-22] MEDS ORDERED: Non-Formulary Item 1 EACH (Pregabalin [Lyrica] 150 MG Capsule) PO SCH (15:00)
[2025-06-22] MEDS: Fioricet 325/50/40 mg Tablet PO PRN (15:01)
[2025-06-22] MEDS ORDERED: Non-Formulary Item 1 EACH (Buspirone Hcl [Buspirone Hcl] 15 MG Tablet) PO SCH (21:00)
[2025-06-22] MEDS ORDERED: BUPRENORPHINE HCL 750 MCG BUC SCH (21:00)
[2025-06-22] MEDS: Buprenorphine Hcl [Belbuca] 900 MCG Film PO SCH (21:03)
[2025-06-23 06:42] LABS: #Basophils 0.03 10x3/uL (0.0-0.2); #Eosinophils 0.25 10x3/uL (0.0-0.7); #Monocytes 0.82 10x3/uL (0.11-0.59); #Neutrophils 6.51 10x3/uL (1.40-6.50); %Basophils 0.3 % (0.0-1.0); %Eosinophils 2.3 % (0.0-10.0); %Lymphocytes 30.4 % (21.0-51.0); %Monocytes 7.5 % (0.0-10.0); %Neutrophils 59.0 % (42.0-75.0); Hematocrit 30.4 % (36.0-47.0); Hemoglobin 9.7 g/dL (12.0-16.0); Mean Corpuscular Hemoglobin 28.1 pg (27.0-31.0); Mean Corpuscular Volume 88.1 fL (78.0-98.0); Platelet Count 183 10x3/uL (130-400); Red Blood Cell (RBC) Count 3.45 mill/uL (4.20-5.40); White Blood Cell (WBC) Count 11.00 10x3/uL (4.8-10.8)
[2025-06-23 07:02] LABS: Vancomycin, Random 16.4 ug/mL (See Comment)
[2025-06-23 07:03] LABS: Anion Gap 10 mmol/L (10-20); BUN (Urea Nitrogen) 26 mg/dL (9.8-20.1); Calc. Creatinine Clearance 80 mL/min (70-130); Calcium 8.7 mg/dL (7.8-10.44); Carbon Dioxide 22 mmol/L (23-31); Chloride 113 mmol/L (98-107); Glucose 106 mg/dL (83-110); Potassium 4.7 mmol/L (3.5-5.1); Sodium 140 mmol/L (136-145)
[2025-06-23] MEDS ORDERED: Non-Formulary Item 1 EACH (Levothyroxine Sodium [Levothyroxine Sodium] 100 MCG Capsule) PO SCH (09:00)
[2025-06-23] MEDS ORDERED: Non-Formulary Item 1 EACH (Amitriptyline Hcl [Amitriptyline Hcl] 50 MG Tablet) PO SCH (09:00)
[2025-06-23] MEDS ORDERED: Iopamidol-370 76% 500 ML MDV (1 ML CHARGE) ONE (15:19)
[2025-06-23] MEDS: Vancomycin 1.25 GM / NS 250 ML VIAL-2-BAG IVPB SCH (15:38)
[2025-06-23] MEDS: Carvedilol 6.25 MG TAB PO SCH (21:49)
[2025-06-24] MEDS: Guaifenesin DM 100-10/5 ML UDCUP PO PRN (04:17)
[2025-06-24 08:37] LABS: #Basophils 0.03 10x3/uL (0.0-0.2); #Eosinophils 0.26 10x3/uL (0.0-0.7); #Monocytes 0.81 10x3/uL (0.11-0.59); #Neutrophils 3.68 10x3/uL (1.40-6.50); %Basophils 0.4 % (0.0-1.0); %Eosinophils 3.1 % (0.0-10.0); %Lymphocytes 42.8 % (21.0-51.0); %Monocytes 9.6 % (0.0-10.0); %Neutrophils 43.5 % (42.0-75.0); Hematocrit 30.8 % (36.0-47.0); Hemoglobin 10.2 g/dL (12.0-16.0); Mean Corpuscular Hemoglobin 28.6 pg (27.0-31.0); Mean Corpuscular Volume 86.3 fL (78.0-98.0); Platelet Count 207 10x3/uL (130-400); Red Blood Cell (RBC) Count 3.57 mill/uL (4.20-5.40); White Blood Cell (WBC) Count 8.44 10x3/uL (4.8-10.8)
[2025-06-24 08:48] LABS: Anion Gap 10 mmol/L (10-20); BUN (Urea Nitrogen) 15 mg/dL (9.8-20.1); Calc. Creatinine Clearance 106 mL/min (70-130); Calcium 8.8 mg/dL (7.8-10.44); Carbon Dioxide 25 mmol/L (23-31); Chloride 109 mmol/L (98-107); Glucose 86 mg/dL (83-110); Potassium 5.0 mmol/L (3.5-5.1); Sodium 139 mmol/L (136-145)
[2025-06-24] MEDS: Losartan 25 MG TAB PO SCH (09:14)
[2025-06-24] MEDS: cloNIDine 0.1 MG TAB PO SCH (09:14)
[2025-06-25 05:58] LABS: #Basophils Less than 0.03 10x3/uL (0.0-0.2); #Eosinophils 0.24 10x3/uL (0.0-0.7); #Monocytes 0.68 10x3/uL (0.11-0.59); #Neutrophils 3.19 10x3/uL (1.40-6.50); %Basophils 0.2 % (0.0-1.0); %Eosinophils 3.0 % (0.0-10.0); %Lymphocytes 47.3 % (21.0-51.0); %Monocytes 8.4 % (0.0-10.0); %Neutrophils 39.7 % (42.0-75.0); Hematocrit 31.0 % (36.0-47.0); Hemoglobin 9.9 g/dL (12.0-16.0); Mean Corpuscular Hemoglobin 27.9 pg (27.0-31.0); Mean Corpuscular Volume 87.3 fL (78.0-98.0); Platelet Count 210 10x3/uL (130-400); Red Blood Cell (RBC) Count 3.55 mill/uL (4.20-5.40); White Blood Cell (WBC) Count 8.05 10x3/uL (4.8-10.8)
[2025-06-25 06:16] LABS: Anion Gap 14 mmol/L (10-20); BUN (Urea Nitrogen) 16 mg/dL (9.8-20.1); Calc. Creatinine Clearance 97 mL/min (70-130); Calcium 9.2 mg/dL (7.8-10.44); Carbon Dioxide 27 mmol/L (23-31); Chloride 106 mmol/L (98-107); Glucose 96 mg/dL (83-110); Potassium 4.8 mmol/L (3.5-5.1); Sodium 142 mmol/L (136-145)
[2025-06-25 08:04] VITALS: BP 149/86; TEMP 98
[2025-06-25] MEDS: Fluconazole 100 MG TAB PO SCH (10:44)
== END 2025-06-25 11:04 | disposition home or self-care (01) | DRG 871 ==
LOC: ERS 17:05 → T4-B 23:26 → OBSVTOIN 06-22 09:58
PROVIDERS: ADMIT Internal Medicine; ATTEND Internal Medicine
DX: A41.9 Sepsis, unspecified organism (principal); J18.9 Pneumonia, unspecified organism; I50.32 Chronic diastolic (congestive) heart failure; N17.9 Acute kidney failure, unspecified; N39.0 Urinary tract infection, site not specified; R65.20 Severe sepsis without septic shock; I11.0 Hypertensive heart disease with heart failure; E03.9 Hypothyroidism, unspecified; D64.9 Anemia, unspecified; M54.50 Low back pain, unspecified; G51.0 Bell's palsy; Z79.899 Other long term (current) drug therapy
CPT/HCPCS: 36415; 51701; 70450; 71045; 71260; 74177; 80048; 80053; 80202; 81001; 83605; 83880; 84145; 84484; 85025; 85610; 85730; 86141; 87040; 87081; 87086; 87426; 87633; 93005; 94760; 96372; 96374; 96375; 96376; G0378; J0692; J1644; J1885; J3373; J3375; J7030; J7050; Q0177; Q9967